=== PATIENT | female | born 1965 | race Caucasian/White ===

== ENCOUNTER → 2017-07-02 | Outpatient (CLI) | payer BC ==
[~2017-07-02] MED LIST: ASPIRIN EC81 MG PO; ASPIRIN325 MG PO; CELEXA40 MG PO; CENTRUM SILVER1 TAB PO; L-METHYLFOLATE15 MG PO; PERCOCET 5-3251 EACH PO; VITAMIN B COMP1 EACH PO; VITAMIN D-32000 UNI1 PO; [UNRECOGNIZED DRUG - OTHER] PO; [UNRECOGNIZED DRUG - OTHER] PO
== END | disposition disaster alternative care site (69) ==
LOC: GBCOE 09:49
DX: Z12.31 Encounter for screening mammogram for malignant neoplasm of breast (principal)
CPT/HCPCS: G0202